=== PATIENT | female | born 1965 | race Hispanic/Latino ===

== ENCOUNTER 2018-02-07 12:36 | Emergency (ER) | payer SELFPAY ==
[2018-02-07] MEDS ORDERED: Water For Inject, Bacteriostat 30 ML ONE (15:22)
[2018-02-07] MEDS ORDERED: methylPREDNISolone Sod Succ/PF 125 MG/2 ML VIAL ONE (15:22)
--- NOTE | 2018-02-07 15:30 | MRI ---
MRI BRAIN AND ORBITS WITH AND WITHOUT CONTRAST: DATE: 02/07/2018. HISTORY: A 52-year-old female with vision loss, optic disk edema, and headache. TECHNIQUE: Multiplanar, multisequence MRI of the brain and orbits performed pre- and post-IV injection of 10 mL of MultiHance Gadolinium-based contrast agent. FINDINGS: In the periventricular white matter abutting anterior horn of the right lateral ventricle, there is a small, approximately 0.5 x 0.5 x 0.3 cm T2-hyperintense lesion (best visualized on FLAIR axial and s agittal sequences), with central tiny low signal intensity center. This does not enhance, and has no restricted diffusion. It is nonspecific, but probably represents a small focus of minimal chronic i schemic white matter change due to microvascular atherosclerosis. Otherwise, there is no other intra axial signal abnormality in the rest of the cerebral hemispheres, brainstem, or cerebellum. There is no restricted diffusion, abnormal intraaxial enhancement, mass, mass effect, midline shift, or extra axial fluid collection. The ventricles are normal in size and configuration. The cavernous sinuses are bilaterally normal. The bilateral optic nerves are tortuous, which is not necessarily abnormal. However, their caliber may be at the upper limits of normal. There may be mild ly increased enhancement of vessels along the bilateral optic nerves, and possibly mild enhancement o f the optic nerves themselves. There is no intraorbital edema. No dilation of the superior ophthalm ic veins. Extraocular muscles are bilaterally normal. There is no mass at the orbital apices. Opti c chiasm is normal. IMPRESSION: 1. Questionable mild, bilaterally symmetrical optic nerve swelling and questionable slightly increas ed optic nerve enhancement, possibly representing edema (optic neuritis ?). 2. The brain is essentially normal. 3. Recommend ophthalmology consultation and follow up. POS: [facility]
== END 2018-02-07 15:33 | disposition home or self-care (01) ==
LOC: SCSER 12:36
DX: H46.9 Unspecified optic neuritis (principal)
CPT/HCPCS: 70553; 96374; J2930